=== PATIENT | female | born 1980 | race Caucasian/White ===

== ENCOUNTER 2024-04-13 10:04 | Outpatient (CLI) | payer BC, SELFPAY ==
--- NOTE | ~2024-04-13 | CT_ITS ---
EXAMINATION: CT diagnostic chest wo con DATE: 04/13/2024 10:32 INDICATION: Solitary pulmonary nodule TECHNIQUE: Computed tomography (CT) of the chest was performed without intravenous contrast. Addition al 3D reconstructions utilizing coronal maximum intensity projection (MIP) were performed. Automated exposure control and iterative reconstruction technique were employed. The dose-length product was 13 1.46 mGy-cm. COMPARISON: None FINDINGS: Small calcified left upper lobe nodule and calcified left hilar and mediastinal lymph nodes consisten t with old granulomatous disease. 3 mm noncalcified right lower lobe nodule. There are also a few sma ll flat the triangular intrafissural lymph nodes along the left and right major fissures. No pneumoni a, pulmonary edema or pleural effusion. Heart size is normal. No pericardial effusion. Thoracic aorta is normal in caliber. No pathologically enlarged thoracic lymphadenopathy. Diffuse hepatic steatosis . Mild thoracic dextrocurvature with mild spondylosis. IMPRESSION: 1. 3 mm noncalcified right lower lobe nodule. If the patient is low risk for lung cancer, no follow-u p is needed. If the patient is high risk (i.e., history of smoking or asbestos or significant radiati on exposure), optional follow-up chest CT could be considered at 12 months. Reviewed, dictated and finalized at location B. IMPRESSION: 1. 3 mm noncalcified right lower lobe nodule. If the patient is low risk for tuan ng cancer, no follow-up is needed. If the patient is high risk (i.e., history o f smoking or asbestos or significant radiation exposure), optional follow-up ch est CT could be considered at 12 months.
== END 2024-04-13 10:05 | disposition home or self-care (01) ==
LOC: GOSHIMG 10:06
PROVIDERS: PCP Nurse Practitioner Adult Health; Visit Provider Nurse Practitioner Adult Health
DX: R91.1 Solitary pulmonary nodule (principal)
CPT/HCPCS: 71250

== ENCOUNTER 2024-05-04 12:08 | Outpatient (CLI) | payer BC, SELFPAY ==
--- NOTE | ~2024-05-04 | MM_ITS ---
EXAMINATION: MM screening pierre BI w yimi HISTORY: Screening TECHNIQUE: Craniocaudal and mediolateral oblique 3-D tomosynthesis images were obtained and synthetic 2-D images were generated. CAD analysis was submitted and interpreted. COMPARISON: No prior mammogram is available for comparison at this institution. BREAST PARENCHYMAL COMPOSITION: Not dense: There are scattered areas of fibroglandular density. FINDINGS: There is a low-density asymmetry in the lower inner quadrant of the right breast. There are no suspicious masses, calcifications or architectural distortion in the left breast to suggest malig mert. IMPRESSION: 1. Focal asymmetry of the right breast in the lower inner quadrant, middle third. 2. Additional mammographic views and possible breast ultrasound are recommended. BI-RADS Category 0: Incomplete: Needs additional imaging evaluation. Reviewed, dictated and finalized at location B. IMPRESSION: 1. Focal asymmetry of the right breast in the lower inner quadrant, middle thir d. 2. Additional mammographic views and possible breast ultrasound are recommended . BI-RADS Category 0: Incomplete: Needs additional imaging evaluation.
== END 2024-05-04 12:09 | disposition home or self-care (01) ==
LOC: CHSIMG 12:11
PROVIDERS: PCP Nurse Practitioner Adult Health; Visit Provider Nurse Practitioner Adult Health
DX: Z12.31 Encounter for screening mammogram for malignant neoplasm of breast (principal); R92.8 Other abnormal and inconclusive findings on diagnostic imaging of breast
CPT/HCPCS: 77063; 77067

== ENCOUNTER 2024-05-20 08:51 | Outpatient (CLI) | payer BC, SELFPAY ==
--- NOTE | ~2024-05-20 | MMUS_ITS ---
EXAMINATION: MM diagnostic pierre RT w yimi, US breast RT limited HISTORY: Lump right breast asymmetry TECHNIQUE: Additional 3-D tomosynthesis images of the right breast were performed and synthetic 2-D i mages were generated. CAD analysis was submitted and interpreted. High resolution Limited right breas t ultrasound was performed. COMPARISON: 05/04/2024 BREAST PARENCHYMAL COMPOSITION: Not dense: There are scattered areas of fibroglandular density. FINDINGS: MAMMOGRAPHIC FINDINGS: Right breast asymmetry inferiorly compresses with spot views. No discrete mass or architectural disto rtion. There are no suspicious calcifications. ULTRASOUND: Limited right breast ultrasound: Normal heterogeneous echotexture without focal solid or cystic mass. IMPRESSION: 1. No evidence for malignancy in the right breast. 2. Routine yearly screening mammogram and regular clinical breast examination are recommended. BI-RADS Category 1: Negative Reviewed, dictated and finalized at location B. IMPRESSION: 1. No evidence for malignancy in the right breast. 2. Routine yearly screening mammogram and regular clinical breast examination a re recommended. BI-RADS Category 1: Negative
== END 2024-05-20 08:52 | disposition home or self-care (01) ==
LOC: CHSIMG 08:52
PROVIDERS: PCP Nurse Practitioner Adult Health; Visit Provider Nurse Practitioner Adult Health
DX: R92.8 Other abnormal and inconclusive findings on diagnostic imaging of breast (principal)
CPT/HCPCS: 76642; 77061; 77065; G0279

== ENCOUNTER 2025-07-19 11:21 | Outpatient (CLI) | payer BC, SELFPAY ==
--- OUTSIDE RECORDS SUMMARY | 2025-07-19 13:43 | XMS_ITS | Clinical Summary ---
Author Organization [facility] Address [address] [place] [address] Phone Care Team Providers Care Cutter Grinder Name Role Phone Jesse Moreno MD Primary Care Provider [phone] Allergies No known active allergies Medications No known medications Active Problems Problem Noted Date Diagnosed Date DUB (dysfunctional uterine bleeding) 10/28/2014 Vag del, 01/04/14, girl, Monica 01/04/2014 Unspecified hypothyroidism 06/17/2013 Overview (06/17/2013): Repeat lab next pn visit Resolved Problems Problem Noted Date Diagnosed Date Resolved Date SROM 1200, AB+, GBS+ (PCN) H ypothyroidism (Synthroid) 01/04/2014 01/04/2014 SROM 300 05/12, MIL, GBS-, RH+ 05/12/2010 01/04/2014 Immunizations Immunization Administration Dates Next Due (ADACEL/BOOSTRIX)(10 YR UP) TDAP VACCINE, 0.5ML, IM 11/01/2013,05/13/2010 Family History Medical History Relation Name Comments Healthy Brother Other Daughter 1 Brain tumor Healthy Daughter 2 Other Father chirrosis of [place] Healthy Maternal Grandfather Healthy Maternal Grandmother Diabetes Mother Other Mother chirrosis of [place] Healthy Paternal Grandfather Healthy Paternal Grandmother Healthy Sister Relation Name Status Comments Brother Alive Daughter 1 Alive Daughter 2 Alive Father Maternal Grandfather Maternal Grandmother Mother Paternal Grandfather Paternal Grandmother Sister Alive Social History Tobacco Use Types Packs/Day Years Used Date Smoking Tobacco: Never Alcohol Use Standard Drinks/Week Comments Yes 0 (1 standard drink = 0.6 oz pur e alcohol) occ Comments No Sex and Gender Information Value Date Recorded Sex Assigned at Not on file 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 Gender Identity Not on file Sexual Orientation Not on file Occupation Industry Job Start Date Job End Date Not on file Not on file Not on file Not on file Last Filed Vital Signs Vital Sign Reading Time Taken Comments Blood Pressure 102/64 11/18/2016 10:37 AM CDT Pulse 64 11/18/2016 10:37 AM CDT Temperature 36.7 C (98 F) 01/06/2014 10:42 AM CDT Respiratory Rate 12 11/18/2016 10:37 AM CDT Oxygen Saturation 98% 01/04/2014 1:48 PM CDT Inhaled Oxygen Concentration - - Weight 99.3 kg (219 lb) 11/18/2016 10:37 AM CDT Height 177.8 cm (5' 10) 11/18/2016 10:37 AM CDT Body Mass Index 31.42 11/18/2016 10:37 AM CDT Plan of Treatment Health Maintenance Due Date Last Done Comments HEPATITIS B VACCINES (1 of 3 - 19+ 3-dose series) 2000 PAP SMEAR 11/19/2019 11/18/2016, 05/04, 05/20/2014 CERVICAL CANCER SCREENING 11/18/2021 HPV/Cotest (21-29) 11/18/2021 11/18/2016, 05/20/2014 HPV/Cotest (30-65) 11/18/2021 11/18/2016, 05/20/2014 BREAST CANCER SCREENING 2021 DTAP/TDAP/TD VACCINES (3 - T d or Tdap) 11/02/2023 11/01/2013, 05/13/2010 INFLUENZA VACCINE (#1) 2025 HPV VACCINES (No Doses Required) Completed Procedures Procedure Name Priority Date/Time Associated Diagnosis Comments CERV/VAG CYTO SCREEN PAP RLFX HPV Routine 11/18/2016 2:47 PM CDT Encounter for routine gynecological examination with Papanicolaou smear of cervix from Last 3 Months or Most Recently Relevant to Health Maintenance Results * CERV/VAG CYTOPATH, THIN PREP IMAGR RFLX HPV (11/18/2016 2:47 PM CDT) CLINICAL INFORMATION SEE COMMENT 11/22/2016 10:10 AM CDT [facility] Comment:Information not prov ided LAST MENSTRUAL PERIOD UNKNOWN 11/22/2016 10:10 AM CDT [facility] PREV PAP: SEE COMMENT 11/22/2016 10:10 AM CDT [facility] Comment:INFORMATION NOT PROV IDED PREV BX: SEE COMMENT 11/22/2016 10:10 AM CDT [facility] Comment:INFORMATION NOT PROV IDED SOURCE Endocervix 11/22/2016 10:10 AM CDT [facility] ADEQUACY: SEE COMMENT 11/22/2016 10:10 AM CDT [facility] Comment: Satisfactory for evaluation. Endocervical/transformation zone component present. Age and/or menstrual status not provided PAP INTERP SEE COMMENT 11/22/2016 10:10 AM CDT [facility] Comment:Negative for intraep ithelial lesion or malignancy. COMMENT SEE COMMENT 11/22/2016 10:10 AM CDT [facility] Comment: This Pap test has been evaluated with computer assisted technology. BACK PANEL PADDER: SEE COMMENT 2016 10:10 AM CDT [facility] Comment: PCM, CT(ASCP) CT screening location: [place] [address] [address] [place] [id number] Genital SWAB OF ENDOCERVIX / Unknown 11/18/2016 2:47 PM CDT 11/18/2016 2:47 PM CDT Narrative [facility] - 11/22/2016 10:10 AM CDT Performing Organization Information: Site ID: SL Name: [email or web address] Address: [facility] [place] [address] Director: Grant Vivas MD us Sima Fernando MD PATHOLOGY/CYTOLOGY ORDERABL ES Final Result [facility] from Last 3 Months or Most Recently Relevant to Health Maintenance Insurance [facility] OPTIONS PPO [id number] Advance Directives For more information, please contact: [phone] * Full Code (Latest Code Status on File) Date Activated Date Inactivated Comments 01/04/2014 8:19 PM 01/06/2014 2:21 PM * Full Code Date Activated Date Inactivated Comments 01/04/2014 11:49 AM 01/04/2014 5:31 PM * Full Code Date Activated Date Inactivated Comments 01/04/2014 11:42 AM 01/04/2014 11:49 AM * Full Code Date Activated Date Inactivated Comments 05/12/2010 9:52 PM 05/14/2010 1:10 PM * Full Code Date Activated Date Inactivated Comments 05/12/2010 11:39 AM 05/12/2010 9:52 PM Care Teams Cutter Grinder Relationship Specialty Start Date End Date Jesse Moreno MD PCP - General Family Practice 03/20/10
--- OUTSIDE RECORDS SUMMARY | 2025-07-19 13:43 | XMS_ITS | Clinical Summary ---
Author Organization [facility] [address] [facility] Address [address] [place] [address] Care Team Providers Care Manager Distribution Name Role Phone Julia Husain NP Primary Care Provider [phone] Allergies No known active allergies Medications MULTIVITAMIN ORAL Take by mouth Active spironolactone (ALDACTONE) 100 mg tablet Take 1 tablet (100 mg total) by mouth daily 4 Active levothyroxine (SYNTHROID) 50 mcg tablet Take 1 tablet (50 mcg total) by mouth coding specialist before breakfast Active benzonatate (TESSALON) 100 mg capsuleIndicati ons:Cough Take 1 capsule (100 mg total) by mouth 3 (three) times a day as needed for cough 42 capsule 4 Active Active Problems No known active problems Surgical History Surgery Date Site/Laterality Comments MIDDLE EAR SURGERY TONSILLECTOMY Medical History Medical History Date Comments No pertinent past medical history Family History Medical History Relation Name Comments Cirrhosis Father Cirrhosis Mother Relation Name Status Comments Father Mother Social History Tobacco Use Types Packs/Day Years Used Date Smoking Tobacco: Never Smokeless Tobacco: Never Personal Safety Answer Date Recorded Getting School Help Needed Not on file 07/20 Comments No Sex and Gender Information Value Date Recorded Sex Assigned at Not on file 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 Gender Identity Not on file Sexual Orientation Not on file Last Filed Vital Signs Vital Sign Reading Time Taken Comments Blood Pressure 108/64 03/19/2024 12:30 PM CDT Pulse 83 03/19/2024 12:30 PM CDT Temperature 36.7 C (98.1 F) 03/19/2024 12:30 PM CDT Respiratory Rate 17 03/19/2024 12:3 0 PM CDT Oxygen Saturation 98% 03/19/2024 12: 30 PM CDT Inhaled Oxygen Concentration - - Weight 104.4 kg (230 lb 3.2 oz) 024 12:30 PM CDT Height 175.3 cm (5' 9) 03/19/2024 12:3 0 PM CDT Body Mass Index 33.99 03/19/2024 12:30 PM CDT Plan of Treatment Health Maintenance Due Date Last Done Comments Breast Cancer Screening-Mammogram 1981 Cervical Cancer Screening 1981 Depression Screening 1981 Varicella Vaccines (1 of 2 - 13+ 2-dose series) 1994 Regular Well Visit/Exam 18-64 12/10/1999 HPV Vaccines (1 - 3-dose SCD M series) 2008 DTaP/Tdap/Td Vaccine (3 - Td or Tdap) 11/02/2023 11/01/2013, 05/13/2010 Influenza Vaccine (#1) 2025 , 07/01/2017, 06/15/2013 Hepatitis B Screening Completed 05/18/2013 Hepatitis C Screening Completed 05/18/2013 Pneumococcal vaccine <65 Aged Out No longer eligible based on patient's age to complete this topic Procedures Procedure Name Priority Date/Time Associated Diagnosis Comments HEPATITIS PANEL, ACUTE Routine 05/18/2013 4:06 PM CDT from Last 3 Months or Most Recently Relevant to Health Maintenance Results * Hepatitis panel, acute (05/18/2013 4:06 PM CDT) HepBsAg NONREACT NONREACTIVE 05/19/2013 10:09 AM [facility] HISTORICAL RESULTS Comment: [employer] using REECE (chemiluminescent immunoassay) technology. NONREACTIVE: IgM antibodies to Hepatitis B Surface antigen not detected. REACTIVE: IgM antibodies to Hepatitis B Surface antigen detected. Reactive results will be confirmed by neutralization testing. HBsAb (immune status) NONREACT NONREACTIVE 05/19/2013 10:09 AM CDT [facility] AS HISTORICAL RESULTS Comment: [employer] using REECE (chemiluminescent immunoassay) technology. NONREACTIVE: IgM antibodies to Hepatitis B Surface antibody not detected. REACTIVE: IgM antibodies to Hepatitis B Surface antibody detected. Hep B core IgM NONREACT NONREACTIVE 3 10:09 AM [facility] HISTORICAL RESULTS Comment: [employer] using REECE (chemiluminescent immunoassay) technology. NONREACTIVE: IgM antibodies to Hepatitis B Core antigen not detected. EQUIVOCAL: IgM antibodies to Hepatitis B Core antigen may or may not be present. Obtain a new specimen and retest. REACTIVE: IgM antibodies to Hepatitis B Core antigen detected. Hep A IgM NONREACT NONREACTIVE Comment: [employer] using REECE (chemiluminescent immunoassay) technology. NONREACTIVE: IgM antibodies to Hepatitis A not detected. This does not exclude possibility of exposure to Hepatitis A or early acute infection. EQUIVOCAL:IgM antibodies to Hepatitis A may or may not be present. Suggest recollection and retest. REACTIVE: Antibodies to Hepatitis A detected. Hep C Ab NONREACT NONREACTIVE Comment: [employer] using REECE (chemiluminescent immunoassay) technology. NONREACTIVE: Antibodies to Hepatitis C not detected. This does not exclude early acute Hepatitis C infection, possibility of exposure to Hepatitis C, antibodies below detection limit, or to lack of antibody reactivity to the antigen used in this assay. EQUIVOCAL: Antibodies to Hepatitis C may or may not be present. Sample to be confirmed by real-time PCR method. REACTIVE: Antibodies to Hepatitis C detected. 05/18/2013 4:06 PM CDT 05/18/2013 4:15 PM CDT [facility] MICROBIOLOGY - GENER AL ORDERABLES Final Result [facility] HISTORICAL RESULTS from Last 3 Months or Most Recently Relevant to Health Maintenance [facility] Care Teams Manager Distribution Relationship Specialty Start Date End Date Jluia Husain NP [facility] [place] [address] PCP - General Nurse Practitioner 01/12/21
[2025-07-19 18:26] LABS: Non Pathogenic Casts 0-2
[2025-07-19 18:31] LABS: Appearance Urine Clear (Clear); Glucose Urine UA Negative (Negative); Specific Grav Ur 1.006 (1.001-1.035)
[2025-07-19 18:40] LABS: Add Urine Microscopic? YES
== END 2025-07-19 11:22 | disposition home or self-care (01) ==
PROVIDERS: PCP Nurse Practitioner Adult Health; Visit Provider Nurse Practitioner Adult Health
DX: R39.9 Unspecified symptoms and signs involving the genitourinary system (principal)
CPT/HCPCS: 81001; 87077; 87086; 87186